=== PATIENT | female | born 1960 | race Caucasian/White ===

== ENCOUNTER → 2016-06-04 | Outpatient (CLI) | payer BC ==
[~2016-06-04] MED LIST: ATIVAN 0.50.5 MG/TAB PO; BUTALBITAL/APAP1 TA1 PO; CLEOCIN HC150 MG/CAP PO; DESYREL 50MG50 MG PO; EFFEXOR 50M50 MG/TAB PO; FIORCET; FIORINAL W/CODE1 CA2 PO; ICAPS TABLET1 EACH PO; IMITREX ST6 MG/0.5 M SQ; IMITREX100 MG PO; IMITREX25 MG PO; INDERAL 20MG20 MG PO; LEXAPRO20 MG PO; MULTIPLE VITAMI1 TA5 PO; NORCO 325 MG-51 TAB PO; WELLBUTRIN XL150 MG PO; [UNRECOGNIZED DRUG - OTHER]
== END ==
LOC: BHSO 15:19
DX: F33.42 Major depressive disorder, recurrent, in full remission (principal)

== ENCOUNTER → 2016-11-27 | Outpatient (CLI) | payer BC | LOC: BHSO 15:40 | DX: F06.32 Mood disorder due to known physiological condition with major depressive-like episode (principal) ==

== ENCOUNTER 2016-12-07 23:56 | Emergency (ER) | payer BC ==
[~2016-12-07] VITALS: Ht 167.6 cm; Wt 67.3 kg
[~2016-12-07 23:56] MED LIST changes: -ATIVAN 0.50.5 MG/TAB PO; -CLEOCIN HC150 MG/CAP PO; -DESYREL 50MG50 MG PO; -FIORINAL W/CODE1 CA2 PO; -ICAPS TABLET1 EACH PO; -IMITREX100 MG PO; -INDERAL 20MG20 MG PO; -MULTIPLE VITAMI1 TA5 PO; -NORCO 325 MG-51 TAB PO
[2016-12-07 23:59] VITALS: TEMP 98.8
[2016-12-08] MEDS ORDERED: DESYREL 50MG50 MG PO (00:06)
[2016-12-08] MEDS ORDERED: INDERAL 20MG20 MG PO (00:06)
[2016-12-08] MEDS ORDERED: ATIVAN 0.50.5 MG/TAB PO (00:07)
[2016-12-08] MEDS ORDERED: IMITREX100 MG PO (00:08)
[2016-12-08] MEDS ORDERED: FIORINAL W/CODE1 CA2 PO (00:08)
[2016-12-08] MEDS ORDERED: MULTIPLE VITAMI1 TA5 PO (00:09)
[2016-12-08] MEDS ORDERED: ICAPS TABLET1 EACH PO (00:09)
[2016-12-08] MEDS ORDERED: NORCO 325 MG-51 TAB PO (00:28)
[2016-12-08] MEDS ORDERED: CLEOCIN HC150 MG/CAP PO (00:28)
[2016-12-08 00:56] VITALS: BP 153/70; PULSE 71
== END 2016-12-08 00:58 | disposition home or self-care (01) ==
LOC: COL.ER 23:56
DX: K11.20 Sialoadenitis, unspecified (principal); Z79.82 Long term (current) use of aspirin
CPT/HCPCS: J1170

== ENCOUNTER → 2016-12-25 | Outpatient (CLI) | payer BC ==
[~2016-12-25] MED LIST changes: +ATIVAN 0.50.5 MG/TAB PO; +CLEOCIN HC150 MG/CAP PO; +DESYREL 50MG50 MG PO; +FIORINAL W/CODE1 CA2 PO; +ICAPS TABLET1 EACH PO; +IMITREX100 MG PO; +INDERAL 20MG20 MG PO; +MULTIPLE VITAMI1 TA5 PO; +NORCO 325 MG-51 TAB PO
== END ==
LOC: MC.RAD 16:45
DX: Z12.31 Encounter for screening mammogram for malignant neoplasm of breast (principal)

== ENCOUNTER → 2017-06-16 | Outpatient (CLI) | payer BC | LOC: BHSO 15:13 | DX: F06.32 Mood disorder due to known physiological condition with major depressive-like episode (principal) | CPT/HCPCS: G0463 ==

== ENCOUNTER → 2017-12-08 | Outpatient (CLI) | payer BC | LOC: BHSO 16:02 | DX: F06.32 Mood disorder due to known physiological condition with major depressive-like episode (principal) | CPT/HCPCS: G0463 ==

== ENCOUNTER → 2018-02-09 | Outpatient (CLI) | payer BC | LOC: BHSO 15:49 | DX: F06.32 Mood disorder due to known physiological condition with major depressive-like episode (principal) | CPT/HCPCS: G0463 ==

== ENCOUNTER → 2018-03-03 | Outpatient (CLI) | payer BC | LOC: MC.RAD 14:20 | DX: Z12.31 Encounter for screening mammogram for malignant neoplasm of breast (principal) ==

== ENCOUNTER 2018-04-24 01:39 | Emergency (ER) | payer BC ==
[~2018-04-24] VITALS: Ht 167.6 cm; Wt 68.2 kg
[2018-04-24 01:43] VITALS: BP 175/83; TEMP 97.7
[2018-04-24 02:50] VITALS: PULSE 73
== END 2018-04-24 02:50 | disposition home or self-care (01) ==
LOC: COL.ER 01:39
DX: G89.29 Other chronic pain (principal); M54.2 Cervicalgia; F41.9 Anxiety disorder, unspecified; F32.9 Major depressive disorder, single episode, unspecified; Z79.82 Long term (current) use of aspirin

== ENCOUNTER → 2018-06-01 | Outpatient (CLI) | payer BC | LOC: COL.RAD 05-27 09:00 | DX: M25.551 Pain in right hip (principal) ==

== ENCOUNTER 2018-07-30 21:32 | Emergency (ER) | payer BC ==
[~2018-07-30] VITALS: Ht 167.6 cm; Wt 70.5 kg
[2018-07-30 21:36] VITALS: TEMP 97.7
[2018-07-30] MEDS ORDERED: CLEOCIN HC150 MG/CAP PO (22:06)
[2018-07-30] MEDS ORDERED: NORCO 325 MG-51 TAB PO (22:06)
[2018-07-30 22:20] VITALS: BP 171/94; PULSE 76
== END 2018-07-30 22:20 | disposition home or self-care (01) ==
LOC: COL.ER 21:32
DX: K11.20 Sialoadenitis, unspecified (principal); R03.0 Elevated blood-pressure reading, without diagnosis of hypertension; F32.9 Major depressive disorder, single episode, unspecified; R51 Headache

== ENCOUNTER 2018-08-02 17:48 | Emergency (ER) | payer BC ==
[~2018-08-02] VITALS: Ht 167.6 cm; Wt 70.5 kg
[2018-08-02 17:58] VITALS: BP 179/88; TEMP 98.7
[2018-08-02] MEDS ORDERED: PERCOCET 325 MG1 TA2 PO (18:19)
[2018-08-02] MEDS ORDERED: CIPRO 500MG TA500 MG PO (18:19)
[2018-08-02 18:27] VITALS: PULSE 80
== END 2018-08-02 18:27 | disposition home or self-care (01) ==
LOC: COL.ER 17:48
DX: K11.20 Sialoadenitis, unspecified (principal); F41.9 Anxiety disorder, unspecified; F32.9 Major depressive disorder, single episode, unspecified; Z88.0 Allergy status to penicillin; Z88.5 Allergy status to narcotic agent

== ENCOUNTER → 2018-08-17 | Outpatient (CLI) | payer BC ==
[~2018-08-17] MED LIST changes: +CIPRO 500MG TA500 MG PO; +PERCOCET 325 MG1 TA2 PO
== END ==
LOC: BHSO 15:17
DX: F06.32 Mood disorder due to known physiological condition with major depressive-like episode (principal)
CPT/HCPCS: G0463

== ENCOUNTER → 2018-10-14 | Outpatient (CLI) | payer BC | LOC: BHSO 15:19 | DX: F06.32 Mood disorder due to known physiological condition with major depressive-like episode (principal) | CPT/HCPCS: G0463 ==

== ENCOUNTER 2019-01-27 01:13 | Emergency (ER) | payer BC ==
[~2019-01-27] VITALS: Ht 167.6 cm; Wt 72.7 kg
[2019-01-27 01:15] VITALS: TEMP 98.2
[2019-01-27] MEDS ORDERED: TOPROL XL 50MG50 MG PO (01:54)
[2019-01-27] MEDS ORDERED: MEDROL 4MG DOSPA4 MG PO (02:33)
[2019-01-27 02:58] VITALS: BP 146/85; PULSE 58
== END 2019-01-27 02:59 | disposition home or self-care (01) ==
LOC: COL.ER 01:13
DX: G43.909 Migraine, unspecified, not intractable, without status migrainosus (principal); M54.2 Cervicalgia; M54.9 Dorsalgia, unspecified; G89.29 Other chronic pain; I10 Essential (primary) hypertension; F41.9 Anxiety disorder, unspecified; F32.9 Major depressive disorder, single episode, unspecified; Z87.891 Personal history of nicotine dependence; Z88.5 Allergy status to narcotic agent
CPT/HCPCS: J7509

== ENCOUNTER → 2019-04-07 | Outpatient (CLI) | payer BC, OTHER ==
[~2019-04-07] MED LIST changes: +BUTALBITAL PO; +CYMBALTA 30MG30 MG PO; +MEDROL 4MG DOSPA4 MG PO; +PREVACID 15MG15 M1 PO; +RESTASIS MULTI5.5 ML OP; +TOPROL XL 50MG50 MG PO; +ZANAFLEX 4MG TAB4 MG PO
== END ==
LOC: BHSO 15:22
DX: F06.32 Mood disorder due to known physiological condition with major depressive-like episode (principal)
CPT/HCPCS: G0463

== ENCOUNTER → 2019-04-11 | Outpatient (CLI) | payer BC ==
[~2019-04-11] MED LIST changes: -BUTALBITAL PO; -CYMBALTA 30MG30 MG PO; -PREVACID 15MG15 M1 PO; -RESTASIS MULTI5.5 ML OP; -ZANAFLEX 4MG TAB4 MG PO
== END ==
LOC: MC.RAD 15:00
DX: Z12.31 Encounter for screening mammogram for malignant neoplasm of breast (principal)

== ENCOUNTER 2019-04-18 07:41 | Day surgery (SDC) | payer BC ==
[~2019-04-18] VITALS: Ht 167.6 cm; Wt 77.7 kg
[2019-04-18] MEDS ORDERED: CYMBALTA 30MG30 MG PO (08:00)
[2019-04-18] MEDS ORDERED: ATIVAN 0.50.5 MG/TAB PO (08:00)
[2019-04-18] MEDS ORDERED: RESTASIS MULTI5.5 ML OP (08:02)
[2019-04-18] MEDS ORDERED: ZANAFLEX 4MG TAB4 MG PO (08:02)
[2019-04-18] MEDS ORDERED: BUTALBITAL PO (08:02)
[2019-04-18] MEDS ORDERED: PREVACID 15MG15 M1 PO (08:03)
[2019-04-18 08:07] VITALS: BP 169/94; PULSE 64; TEMP 98.4
[2019-04-18 09:35] VITALS: BP 127/72; PULSE 63; TEMP 97.6
--- NOTE | 2019-04-18 09:41 | NUR ---
Pt arrived back to room post procedure awake, alert, and oriented. Pt ambulated easily to chair with touch assist from Theodora RN. Received report from SHERRIE Emery. VSS and WNL upon assessment. Call light within reach and pop brought to pt per her request. She denies any nausea or pain at this time.
[2019-04-18 09:45] VITALS: BP 129/74; PULSE 55
--- NOTE | 2019-04-18 09:45 | NUR ---
Pt drank pop without c/o nausea. Pt resting comfortably in chair with call light within reach. Called pt's ride to be ready to pick patient up around 1005.
[2019-04-18 10:00] VITALS: BP 130/74; PULSE 64
--- NOTE | 2019-04-18 10:00 | NUR ---
Pt sitting comfortably in chair. VSS and WNL. Pt states that she is ready to home. Call light within reach
[2019-04-18 10:10] VITALS: BP 145/77; PULSE 65
--- NOTE | 2019-04-18 10:10 | NUR ---
Pt states that she is ready to home, and she meets criteria for discharge. Reviewed discharge information with patient including what signs/symptoms to watch for. Pt expresses understanding and has no further concerns/questions at this time.
== END 2019-04-18 10:22 | disposition home or self-care (01) ==
LOC: SDCO 07:41
DX: Z12.11 Encounter for screening for malignant neoplasm of colon (principal); D12.2 Benign neoplasm of ascending colon; D12.3 Benign neoplasm of transverse colon; D12.8 Benign neoplasm of rectum; K62.89 Other specified diseases of anus and rectum; I10 Essential (primary) hypertension; M79.7 Fibromyalgia; G43.909 Migraine, unspecified, not intractable, without status migrainosus; E03.9 Hypothyroidism, unspecified; Z88.6 Allergy status to analgesic agent; Z79.899 Other long term (current) drug therapy; Z88.0 Allergy status to penicillin; Z88.8 Allergy status to other drugs, medicaments and biological substances
CPT/HCPCS: J2405; J2704; J7030

== ENCOUNTER 2020-11-09 16:48 | Emergency (ER) | payer BC ==
[~2020-11-09] VITALS: Ht 167.6 cm; Wt 63.6 kg
[~2020-11-09 16:48] MED LIST changes: +BUTALBITAL PO; +CYMBALTA 30MG30 MG PO; +PREVACID 15MG15 M1 PO; +RESTASIS MULTI5.5 ML OP; +ZANAFLEX 4MG TAB4 MG PO
[2020-11-09 17:02] VITALS: TEMP 98.3
[2020-11-09] MEDS ORDERED: ULTRAM 50MG TAB50 MG PO (18:14)
[2020-11-09] MEDS ORDERED: FLEXERIL 1010 MG/TAB PO (18:14)
[2020-11-09 18:30] VITALS: BP 149/89; PULSE 70
== END 2020-11-09 18:30 | disposition home or self-care (01) ==
LOC: COL.ER 16:48
DX: M54.5 Low back pain (principal)

== ENCOUNTER 2022-01-08 10:28 | Emergency (ER) | payer BC ==
[~2022-01-08] VITALS: Ht 167.6 cm; Wt 61.4 kg
[~2022-01-08 10:28] MED LIST changes: +FLEXERIL 1010 MG/TAB PO; +ULTRAM 50MG TAB50 MG PO
[2022-01-08 11:12] VITALS: TEMP 96.7
[2022-01-08] MEDS ORDERED: NORCO 325 MG-51 TAB PO (12:20)
[2022-01-08 12:21] VITALS: BP 126/67; PULSE 69
== END 2022-01-08 12:33 | disposition home or self-care (01) ==
LOC: COL.ER 10:28
DX: S20.212A Contusion of left front wall of thorax, initial encounter (principal); Z87.891 Personal history of nicotine dependence; W01.198A Fall on same level from slipping, tripping and stumbling with subsequent striking against other object, initial encounter; Y92.59 Other trade areas as the place of occurrence of the external cause; Y99.0 Civilian activity done for income or pay